=== PATIENT | male | born 1995 | race African-American/Black ===

== ENCOUNTER 2017-03-25 21:40 | Emergency (ER) | payer MEDICAID ==
[~2017-03-25] VITALS: Ht 182.9 cm; Wt 71.7 kg
[~2017-03-25 21:40] MED LIST: ALBUPOW26; SEROQUEL
[2017-03-25 21:50] VITALS: BP 142/99
[2017-03-26] MEDS ORDERED: IBUPROFEN 800 MG TAB PO ONE
== END 2017-03-25 23:52 | disposition home or self-care (01) ==
LOC: ER 21:46
DX: S51.811A Laceration without foreign body of right forearm, initial encounter (principal); Z23 Encounter for immunization; W45.8XXA Other foreign body or object entering through skin, initial encounter; Y93.89 Activity, other specified; Y92.89 Other specified places as the place of occurrence of the external cause; Y99.8 Other external cause status
CPT/HCPCS: 12004